=== PATIENT | female | born 1940 | race Caucasian/White ===

== ENCOUNTER 2019-07-04 07:44 | Outpatient (CLI) | payer MEDICARE, OTHER | END 2019-07-04 07:45 | disposition critical access hospital (66) | LOC: EMS 07:44 | PROVIDERS: ATTEND Surgery | DX: M54.5 Low back pain (principal) ==

== ENCOUNTER 2019-07-04 08:05 | Emergency (ER) | payer MEDICARE, OTHER ==
[2019-07-04] MEDS ORDERED: KETOROLAC 30 MG/ML VIAL IVP STA (08:22)
[2019-07-04] MEDS ORDERED: SODIUM CHLORIDE 0.9% 1,000 ML IV ONE (08:22)
--- NOTE | 2019-07-04 08:33 | ED Physician Documentation ---
PD HPI BACK PAIN - Stated complaint Stated Complaint: LOWER BACK PX - Chief complaint Chief Complaint: Back Pain - History obtained from History obtained from: Patient, Family, EMS - History of Present Illness Timing - onset: How many weeks ago (1) Timing - duration: Weeks (1) Timing - details: Gradual onset, Still present Location: Lower Quality: Pain, Spasm, Sharp, Similar to prior episodes Associated symptoms: No: Fever, Weakness, Numbness, Incontinent of urine, Unable to urinate, Hematuria, Incontinent of stool Improves with: Rest, Position Worsened by: Movement, Twisting Similar symptoms before: Diagnosis (back spasm) Recently seen: Clinic - Additional information Additional information: 70-year-old female with a history of hypertension who is on hydrochlorothiazide has developed some spasm in her lower back that is progressively worsened over the past week. She is also been put on some cipro for urinary tract infection and she has not started her first dose yet. She is not having fever or vomiting. She was getting ready to get up to go to the bathroom this morning when she sat up at the edge of the bed she could not move and her family summoned the ambulance. [place]. She denies any trauma. Review of Systems Constitutional: denies: Fever Eyes: denies: Decreased vision Ears: denies: Ear pain Nose: denies: Congestion Throat: denies: Sore throat Cardiac: denies: Chest pain / pressure, Palpitations Respiratory: denies: Dyspnea, Cough GI: denies: Abdominal Pain, Nausea, Vomiting : reports: Dysuria, Frequency Skin: denies: Rash Musculoskeletal: reports: Back pain. denies: Neck pain Neurologic: denies: Generalized weakness, Focal weakness, Numbness PD PAST MEDICAL HISTORY - Past Medical History Cardiovascular: High cholesterol : Chronic bladder infection - Past Surgical History General: Appendectomy - Present Medications Home Medications: Ambulatory Orders Medication Instructions Recorded Confirmed Aspirin 81 mg PO 07/04/19 Atenolol 25 mg PO 07/04/19 Cyclobenzaprine [Flexeril] 10 mg PO TID PRN #20 tablet 07/04/19 Hydrocodone/Acetaminophen 1 - 2 each PO Q6H PRN #14 tablet 07/04/19 [Hydrocodon-Acetaminophen 5-325] Icosapent Ethyl [Vascepa] 1 gm PO 07/04/19 Simvastatin [Zocor] 10 mg PO 07/04/19 Telmisartan 40 mg PO 07/04/19 busPIRone [Buspar] 2.5 mg PO BID 07/04/19 07/04/19 hydroCHLOROthiazide 25 mg PO 07/04/19 [Hydrochlorothiazide] - Allergies Allergies/Adverse Reactions: Allergies Allergy/AdvReac Type Severity Reaction Status Date / Time nitrofurantoin Allergy Unknown Verified 07/04/19 08:14 [From Macrobid] Sulfa (Sulfonamide Allergy Unknown Verified 07/04/19 08:14 Antibiotics) - Social History Does the pt smoke?: No Smoking Status: Never smoker PD ED PE NORMAL - Vitals Vital signs reviewed: Yes (wide pulse pressure) - General General: Alert and oriented X 3, No acute distress, Well developed/nourished - HEENT HEENT: Atraumatic, PERRL, EOMI, Other (dry mucous membranes) - Neck Neck: Supple, no meningeal sign, No bony TTP - Cardiac Cardiac: RRR, No murmur - Respiratory Respiratory: No respiratory distress, Clear bilaterally - Abdomen Abdomen: Soft, Non tender - Back Back: No CVA TTP, No spinal TTP - Derm Derm: Normal color, Warm and dry, No rash - Extremities Extremities: No deformity, No edema, No calf tenderness / cord - Neuro Neuro: Alert and oriented X 3, teaching young 2-12 intact, No motor deficit, No sensory deficit, Normal speech Eye Opening: Spontaneous Motor: Obeys Commands Verbal: Oriented GCS Score: 15 - Psych Psych: Normal mood, Normal affect Results - Vitals Vitals: Vital Signs - 24 hr 07/04/19 07/04/19 07/04/19 08:06 09:30 11:00 Heart Rate 79 97 61 Respiratory 20 20 13 Rate Blood Pressure 138/53 H 147/54 H 109/51 L O2 Saturation 98 95 98 07/04/19 12:45 Heart Rate 60 Respiratory 13 Rate Blood Pressure 123/50 L O2 Saturation 99 Oxygen O2 Source Room air - Labs Labs: Laboratory Tests 07/04/19 07/04/19 07/04/19 09:15 10:26 10:26 WBC 3.6 L RBC 3.55 L Hgb 10.9 L Hct 31.6 L MCV 89.0 MCH 30.7 MCHC 34.5 RDW 11.9 L Plt Count 133 MPV 9.8 Neut # (Auto) 2.3 Lymph # (Auto) 0.9 L [place] # (Auto) 0.3 Eos # (Auto) 0.1 Baso # (Auto) 0.0 Absolute Nucleated RBC 0.00 Nucleated RBC % 0.0 Sodium 143 Potassium 4.0 Chloride 112 H Carbon Dioxide 23 Anion Gap 8.0 BUN 28 H Creatinine 1.2 H Estimated GFR (MDRD) 43 L Glucose 162 H Calcium 8.4 L Total Bilirubin 1.0 AST 17 ALT 14 Alkaline Phosphatase 52 Total Protein 6.2 L Albumin 3.6 Globulin 2.6 Albumin/Globulin Ratio 1.4 Lipase 51 Urine Color YELLOW Urine Clarity CLEAR Urine pH 6.0 Ur Specific [place] 1.015 Urine Protein NEGATIVE Urine Glucose (UA) NEGATIVE Urine Ketones NEGATIVE Urine Occult Blood NEGATIVE Urine Nitrite NEGATIVE Urine Bilirubin NEGATIVE Urine Urobilinogen 0.2 (NORMAL) Ur Leukocyte Esterase NEGATIVE Ur Microscopic Review NOT INDICATED Urine Culture Comments NOT INDICATED Procedures - IVC sono (time) 0815 Bedside IVC sono: IVC measures (cm) (0.77), IVC collapsed c insp (cm) (complete), Significant dehydration (est 2+ liter deficit) PD MEDICAL DECISION MAKING - ED course Complexity details: reviewed results, re-evaluated patient, considered differential, d/w patient, d/w family ED course: 78-year-old female with history of hypertension and hypercholesterolemia presents to the emergency department today with severe back spasm. There is no trauma to the back and the patient has urinary tract infection. Here in the emergency department her inferior vena cava is interrogated with a bedside ultrasound and she is found to be significantly dehydrated on the order of a 2 L deficit. She is administered intravenous saline Toradol and dexamethasone. These measures help but she requires dilaudid for comfort and she has a lot of sedation and odd feeling with this. Departure - Departure Disposition: 01 Home, Self Care Clinical Impression: Dehydration Lumbar strain Qualifiers: Encounter type: initial encounter Qualified Code(s): S39.012A - Strain of muscle, fascia and tendon of lower back, initial encounter Condition: Stable Instructions: ED Spasm Back No Trauma, ED Dehydration Follow-Up: Your, doctor [Other] Prescriptions: Cyclobenzaprine [Flexeril] 10 mg PO TID PRN #20 tablet PRN Reason: Spasms Hydrocodone/Acetaminophen [Hydrocodon-Acetaminophen 5-325] 1 - 2 each PO Q6H PRN #14 tablet PRN Reason: pain Discharge Date/Time: 07/04/19 13:34
[2019-07-04] MEDS ORDERED: DEXAMETHASONE 10 MG/ML VIAL IVP STA (09:01)
[2019-07-04] MEDS ORDERED: cefTRIAXone 1 GM in SODIUM CHLORIDE 0.9% MINIBAG 100 ML IV STA (09:04)
[2019-07-04] MEDS ORDERED: HYDROmorphone 1 MG/ML CARPUJECT IVP STA (09:04)
[2019-07-04] MEDS ORDERED: ONDANSETRON 4 MG/2 ML VIAL IVP STA (09:04)
[2019-07-04 09:22] LABS: BILIRUBIN,URINE NEGATIVE (NEGATIVE); GLUCOSE, URINE (UA) NEGATIVE (NEGATIVE); KETONES,URINE (UA) NEGATIVE (NEGATIVE); LEUKOCYTE ESTERASE, URINE NEGATIVE (NEGATIVE); NITRITE,URINE NEGATIVE (NEGATIVE); OCCULT BLOOD,URINE NEGATIVE (NEGATIVE); PROTEIN,URINE NEGATIVE (NEGATIVE); UROBILINOGEN,URINE 0.2 (NORMAL) E.U./dL (NORMAL)
[2019-07-04 09:23] LABS: CLARITY,URINE CLEAR (CLEAR)
[2019-07-04 10:32] LABS: BASOPHILS % (AUTO) 0.6 %; EOSINOPHILS # (AUTO) 0.1 10^3/uL (0.0-0.7); EOSINOPHILS % (AUTO) 1.4 %; HGB - HEMOGLOBIN 10.9 g/dL (12.0-16.0); LYMPHOCYTES # (AUTO) 0.9 10^3/uL (1.5-3.5); LYMPHOCYTES % (AUTO) 25.6 %; MEAN CORPUSCULAR HEMOGLOBIN 30.7 pg (27.0-31.0); MEAN CORPUSCULAR HGB CONC 34.5 g/dL (32.0-36.0); MEAN PLATELET VOLUME 9.8 fL (7.9-10.8); MONOCYTES # (AUTO) 0.3 10^3/uL (0.0-1.0); MONOCYTES % (AUTO) 7.3 %; NEUTROPHILS # (AUTO) 2.3 10^3/uL (1.5-6.6); NEUTROPHILS % (AUTO) 64.5 %; PLT - PLATELET COUNT 133 10^3/uL (130-450); RED BLOOD COUNT 3.55 10^6/uL (4.20-5.40); RED CELL DISTRIBUTION WIDTH 11.9 % (12.0-15.0); WHITE BLOOD COUNT 3.6 x10^3/uL (4.8-10.8)
[2019-07-04 10:44] LABS: ALBUMIN 3.6 g/dL (3.2-5.5); ALBUMIN/GLOBULIN RATIO 1.4 (1.0-2.2); CALCIUM 8.4 mg/dL (8.5-10.3); CREATININE 1.2 mg/dL (0.4-1.0); TOTAL PROTEIN 6.2 g/dL (6.7-8.2)
[2019-07-04 12:45] VITALS: BP 123/50
== END 2019-07-04 13:34 | disposition home or self-care (01) ==
LOC: ED 08:05
DX: E86.0 Dehydration (principal); S39.012A Strain of muscle, fascia and tendon of lower back, initial encounter; X58.XXXA Exposure to other specified factors, initial encounter
CPT/HCPCS: 36415; 80053; 81003; 83690; 85025; 96361; 96365; 96375; 99284; 99285; J1170; 81001; 87086